=== PATIENT | male | born 1945 | race Caucasian/White ===

== ENCOUNTER → 2018-11-07 | Outpatient (CLI) | payer MEDICARE, OTHER ==
[~2018-11-07] MED LIST: OMNIPAQUE 350 MG/ML, 100ML BOTTLE ONE
== END | disposition home or self-care (01) ==
LOC: CFH 11:59
PROVIDERS: ATTEND Nurse Practitioner Family
DX: I72.8 Aneurysm of other specified arteries (principal); N28.1 Cyst of kidney, acquired; K76.0 Fatty (change of) liver, not elsewhere classified; J98.4 Other disorders of lung
CPT/HCPCS: 74160; Q9967

== ENCOUNTER → 2018-11-28 | Outpatient (CLI) | payer MEDICARE, OTHER | END | disposition home or self-care (01) | LOC: CFH 12:50 | PROVIDERS: ATTEND Surgery | DX: I72.8 Aneurysm of other specified arteries (principal); K76.0 Fatty (change of) liver, not elsewhere classified; K76.89 Other specified diseases of liver; N28.1 Cyst of kidney, acquired | CPT/HCPCS: 74175; 82565; Q9967 ==

== ENCOUNTER → 2020-01-14 | Outpatient (CLI) | payer MEDICARE, OTHER | END | disposition home or self-care (01) | LOC: CFH 07:57 | PROVIDERS: ATTEND Physician Assistant Medical | DX: I10 Essential (primary) hypertension (principal); R07.9 Chest pain, unspecified | CPT/HCPCS: 78452; 93017; A9502 ==

== ENCOUNTER 2020-07-07 21:08 | Emergency (ER) | payer MEDICARE, OTHER ==
[~2020-07-07] VITALS: Ht 177.8 cm; Wt 98.0 kg
[2020-07-07 23:08] LABS: BASOPHILS % (AUTO) 0 % (0-1); EOSINOPHILS % (AUTO) 0 % (1-7); LYMPHOCYTES % (AUTO) 12 % (22-44); MEAN CORPUSCULAR HEMOGLOBIN 28.9 pg (27.5-34.5); MEAN CORPUSCULAR HGB CONC 33.6 g/dL (33.2-36.2); MEAN PLATELET VOLUME 8.3 fL (7.4-10.4); MONOCYTES % (AUTO) 11 % (2-9); NEUTROPHILS % (AUTO) 77 % (42-75); PLATELET COUNT 141 x10^3/uL (130-400); RED CELL DISTRIBUTION WIDTH 14.6 % (9.4-14.8)
[2020-07-07 23:22] LABS: ALBUMIN 3.7 g/dL (3.4-5.0); ANION GAP 6 mmol/L (5-15); CALCIUM 8.4 mg/dL (8.5-10.1); CHLORIDE 103 mmol/L (98-107); CREATININE 1.45 mg/dL (0.7-1.3)
[2020-07-07 23:26] LABS: MD NO
--- NOTE | 2020-07-07 23:33 | NUR ---
PT HAS HAD INCREASING WEAKNESS TO LOWER EXTREMITIES OVER LAST FEW DAYS. PT DENIES ANY INJURY. VSS. CALL LIGHT IN REACH
--- NOTE | 2020-07-07 23:55 | NUR ---
PT TO MRI.
--- NOTE | 2020-07-08 01:00 | NUR ---
PT BACK FROM MRI. PT PLACED ON 2L NC BACAUSE RA SATS WERE 89. OTHER VSS. PT HAS NO NEEDS AND IS IN NAD. CALL LIGHT IN REACH
[2020-07-08 03:47] VITALS: BP 121/68
--- NOTE | 2020-07-08 03:48 | NUR ---
PT VERBALIZED UNDERSTANDING OF DISCHARGE INSTRUCTIONS. PT TAKEN OUT OF ER BY WHEELCHAIR.
== END 2020-07-08 03:51 | disposition home or self-care (01) ==
LOC: ED 23:31
DX: J18.9 Pneumonia, unspecified organism (principal); M47.816 Spondylosis without myelopathy or radiculopathy, lumbar region; G89.29 Other chronic pain; R00.0 Tachycardia, unspecified
CPT/HCPCS: 36415; 70551; 71045; 72110; 72148; 80048; 82040; 85025; 99285